=== PATIENT | male | born 1995 | race African-American/Black ===

== ENCOUNTER 2017-10-30 18:39 | Emergency (ER) | payer SELFPAY | END 2017-10-30 19:43 | disposition home or self-care (01) | LOC: ER 18:39 | DX: L08.9 Local infection of the skin and subcutaneous tissue, unspecified (principal); F12.10 Cannabis abuse, uncomplicated | CPT/HCPCS: 99283 ==

== ENCOUNTER 2020-03-07 06:21 | Emergency (ER) | payer SELFPAY ==
[~2020-03-07] VITALS: Ht 175.3 cm; Wt 100.0 kg
[~2020-03-07 06:21] MED LIST: SULF1TAB24 PO
[2020-03-07 06:25] VITALS: BP 150/99
--- NOTE | 2020-03-07 07:02 | RAD ---
[facility] left hand and wrist radiographs 03/07/2020 CLINICAL HISTORY: Left hand and wrist pain post fall. No fracture or dislocation of the left wrist is seen. An acute oblique fracture of the proximal/mid diaphysis of the left fourth metacarpal is seen. The alignment of fracture fragments is near-anatomic. No additional fracture is noted. IMPRESSION: Acute fracture of the left fourth metacarpal. Electronically signed by: Jamar Torres MD (03/07/2020 6:59 AM) [id number]
[2020-03-07] MEDS ORDERED: TRAM50TA PO (07:03)
[2020-03-07] MEDS ORDERED: HYDROcodone/APAP 5/325MG 1 TAB TABLET PO ONE (07:15)
--- NOTE | 2020-03-07 07:16 | PHYS DOC ---
Past Medical History Past Medical History: No Pertinent History Past Surgical History: No Surgical History Smoking Status: Current Every Day Smoker Alcohol Use: Occasionally Drug Use: Marijuana Adult General Chief Complaint Chief Complaint: WRIST PAIN HPI HPI Patient is a 24 year old AA right handed male who presents with left hand injury after falling yesterday during a basketball game. Patient reports pain tenderness swelling over the dorsum of his left palm. Denies wrist, elbow and shoulder injury. Patient took Tylenol prior to ED arrival without relief of symptoms. No other symptoms or complaints. [] Review of Systems Review of Systems ROS as per HPI All other systems were reviewed and found to be within normal limits, except as documented in this note. Allergies Allergies Allergies Coded Allergies Type Severity Reaction Last Updated Verified No Known Drug Allergies 08/05/16 No Physical Exam Physical Exam Constitutional: Well developed, well nourished, no acute distress, non-toxic appearance. [] HENT: Normocephalic, atraumatic, bilateral external ears normal, oropharynx moist, no oral exudates, nose normal. [] Eyes: PERRL, EOMI, conjunctiva normal, no discharge. [] Extremities: Left hand, tenderness, swelling over dorsum of palm. No deformity. [] Neurologic: Alert and oriented X 3, normal motor function, normal sensory function, no focal deficits noted. [] Psychologic: Affect normal, judgement normal, mood normal. [] Current Patient Data Vital Signs Vital Signs Date Time Temp Pulse Resp B/P (MAP) Pulse Ox O2 Delivery O2 Flow Rate FiO2 03/07/20 06:25 98.2 73 18 150/99 (116) 100 Room Air 98.2 EKG EKG [] Radiology/Procedures Radiology/Procedures L wrist XR: Acute fracture of the fourth metacarpal bone [] Course & Med Decision Making Course & Med Decision Making Pertinent Labs and Imaging studies reviewed. (See chart for details) [Patient splinted and referred to ortho] Dragon Disclaimer Dragon Disclaimer This electronic medical record was generated, in whole or in part, using a voice recognition dictation system. Departure Departure Impression: Primary Impression: Fracture, carpal bone closed Disposition: HOME, SELF-CARE Condition: STABLE Patient Instructions: Hand Fracture, Metacarpals Additional Instructions: Please wear splint and take Tylenol for pain and Tramadol as needed for additional relief. Contact Dr. Cortes transportation assistant for orthopaedic surgery and schedule follow appointment later this week. Scripts Tramadol Hcl (TRAMADOL HCL) 50 Mg Tablet 50 MG PO Q6H PRN for PAIN for 3 Days, #15 TAB 0 Refills Prov: AUGUSTINA NICHOLS DO 03/07/20 AUGUSTINA NICHOLS DO March 07, 2020 07:16
== END 2020-03-07 07:43 | disposition home or self-care (01) ==
LOC: ER 06:21
DX: S62.395A Other fracture of fourth metacarpal bone, left hand, initial encounter for closed fracture (principal); M79.642 Pain in left hand; R60.0 Localized edema; F17.200 Nicotine dependence, unspecified, uncomplicated; F12.90 Cannabis use, unspecified, uncomplicated; W21.03XA Struck by baseball, initial encounter; Y93.89 Activity, other specified; Y92.89 Other specified places as the place of occurrence of the external cause; Y99.8 Other external cause status
CPT/HCPCS: 29125; 29515; 73110; 73130; 99283; 99284